=== PATIENT | female | born 1940 | race Caucasian/White ===

== ENCOUNTER 2018-10-26 13:57 | Emergency (ER) | payer MEDICARE, OTHER ==
[~2018-10-26] VITALS: Ht 157.5 cm; Wt 96.2 kg
[2018-10-26] MEDS ORDERED: PROTONIX40 M1 PO (14:11)
[2018-10-26] MEDS ORDERED: PRADAXA150 MG PO (14:11)
[2018-10-26] MEDS ORDERED: LISINOPRIL40 MG PO (14:11)
[2018-10-26] MEDS ORDERED: ADVAIR HFA 230M12 GM INH (14:11)
[2018-10-26] MEDS ORDERED: DOFETILIDE250 MCG PO (14:11)
[2018-10-26] MEDS ORDERED: NORVASC5 MG PO (14:11)
[2018-10-26] MEDS ORDERED: ARIMIDEX (14:12)
[2018-10-26] MEDS ORDERED: VENTOLIN HFA 1818 GM INH (14:12)
[2018-10-26] MEDS ORDERED: KEFLEX500 M1 PO (14:45)
[2018-10-26] MEDS ORDERED: ACETAMINOPHEN-1 EAC1 PO (14:45)
[2018-10-26 15:34] VITALS: BP 147/60
== END 2018-10-26 15:35 | disposition home or self-care (01) ==
LOC: M.ERS 13:57
DX: S91.311A Laceration without foreign body, right foot, initial encounter (principal); I48.91 Unspecified atrial fibrillation; I10 Essential (primary) hypertension; Z88.1 Allergy status to other antibiotic agents; Z88.5 Allergy status to narcotic agent; W22.8XXA Striking against or struck by other objects, initial encounter; Y93.89 Activity, other specified; Y92.89 Other specified places as the place of occurrence of the external cause; Y99.8 Other external cause status